=== PATIENT | female | born 1965 | race African-American/Black ===

== ENCOUNTER 2021-10-16 23:00 | Emergency (ER) | payer MEDICAID, OTHER ==
--- NOTE | 2021-10-17 | NUR ---
LEFT WITH [employer] WITH OUT BEING SEEN.
== END 2021-10-17 | disposition left against medical advice (07) ==
LOC: ER 23:02
DX: Z53.21 Procedure and treatment not carried out due to patient leaving prior to being seen by health care provider (principal)